=== PATIENT | female | born 1990 | race American Indian/Alaskan Native ===

== ENCOUNTER 2019-07-28 02:27 | Observation (INO) | payer MEDICAID, OTHER ==
--- NOTE | 2019-07-28 02:51 | Emergency Department Report ---
HPI - General Chief Complaint: Allergic Reaction Time Seen by Provider: 07/28/19 02:43 - HPI HPI: Room 3 The patient is a 28-year-old female presenting with a chief complaint of allergic reaction, unresponsive episode. Patient states she had eaten crabs earlier today even though she is "not supposed to" secondary to allergy. The patient states she knows "how much" she is supposed to eat before becoming infected. The patient states she began to itch all over and felt as though her throat was closing shut she took Benadryl and went to the bathroom. When the patient did not respond verbally to family when they called to her they went in the bathroom to find her slumped over on the commode leaning over the sink unresponsive. There is no seizure-like activity witnessed. The patient states she now has back pain from the way she is laying on the stretcher in the ED and just feels cold. Patient states she no longer feels as though her throat is swollen. ED Past Medical Hx - Past Medical History Previous Medical History?: No - Surgical History Past Surgical History?: Yes Additional Surgical History: C/S - Family History Family history: no significant - Social History Smoking Status: Current Every Day Smoker Substance Use Type: None (denies illicit drug use), Alcohol (frequently) - Medications Home Medications: Home Medications Medication Instructions Recorded Confirmed Last Taken Type Naproxen [Naprosyn] 500 mg PO BID PRN #12 tablet 04/26/18 Unknown Rx Promethazine [Phenergan TAB] 25 mg PO Q6HR PRN #12 tab 04/26/18 Unknown Rx ED Review of Systems ROS: Stated complaint: SYNCOPAL EPISODE Other details as noted in HPI Constitutional: other (feels cold) Physical Exam - Physical Exam Physical Exam: GENERAL: The patient is well-developed well-nourished female lying on stretcher not appearing to be in acute distress. [] HEENT: Normocephalic. Atraumatic. Extraocular motions are intact. Patient has moist mucous membranes. Oropharynx clear NECK: Supple. No stridor CHEST/LUNGS: Clear to auscultation. There is no respiratory distress noted. HEART/CARDIOVASCULAR: Regular. There is no tachycardia. There is no gallop rub or murmur. ABDOMEN: Abdomen is soft, nontender. Patient has normal bowel sounds. There is no abdominal distention. SKIN: There is no rash. There is no edema. There is no diaphoresis. NEURO: The patient is awake, alert, and oriented. The patient is cooperative. The patient has no focal neurologic deficits. The patient has normal speech. Cranial nerves II through XII grossly intact, no drift MUSCULOSKELETAL: There is no evidence of acute injury. ED Medical Decision Making - Lab Data Result diagrams: 07/28/19 03:05 07/28/19 04:42 Laboratory Tests 07/28/19 07/28/19 07/28/19 03:05 03:05 03:05 WBC 12.9 H RBC 5.00 Hgb 14.5 H Hct 44.7 H MCV 90 MCH 29 MCHC 32 RDW 14.6 Plt Count 439 Lymph % (Auto) 22.7 Lares % (Auto) 3.3 Eos % (Auto) 0.3 Baso % (Auto) 0.1 Lymph # 2.9 Lares # 0.4 Eos # 0.0 Baso # 0.0 Seg Neutrophils % 73.6 H Seg Neutrophils # 9.5 H VBG pH Sodium 141 Potassium 3.6 Chloride 106.2 Carbon Dioxide 13 L Anion Gap 25 BUN 9 Creatinine 0.9 Estimated GFR > 60 BUN/Creatinine Ratio 10 Glucose 123 H Calcium 8.2 L Total Creatine Kinase CK-MB (CK-2) CK-MB (CK-2) Rel Index Troponin T HCG, Qual Negative Plasma/Serum Alcohol 07/28/19 07/28/19 07/28/19 03:05 03:05 04:42 WBC RBC Hgb Hct MCV MCH MCHC RDW Plt Count Lymph % (Auto) Lares % (Auto) Eos % (Auto) Baso % (Auto) Lymph # Lares # Eos # Baso # Seg Neutrophils % Seg Neutrophils # VBG pH 7.259 L Sodium Potassium Chloride Carbon Dioxide Anion Gap BUN Creatinine Estimated GFR BUN/Creatinine Ratio Glucose Calcium Total Creatine Kinase 108 CK-MB (CK-2) < 1.0 CK-MB (CK-2) Rel Index 0.9 Troponin T < 0.010 HCG, Qual Plasma/Serum Alcohol 0.10 H Laboratory Tests 07/28/19 07/28/19 07/28/19 03:05 03:05 03:05 WBC 12.9 H RBC 5.00 Hgb 14.5 H Hct 44.7 H MCV 90 MCH 29 MCHC 32 RDW 14.6 Plt Count 439 Lymph % (Auto) 22.7 Lares % (Auto) 3.3 Eos % (Auto) 0.3 Baso % (Auto) 0.1 Lymph # 2.9 Lares # 0.4 Eos # 0.0 Baso # 0.0 Seg Neutrophils % 73.6 H Seg Neutrophils # 9.5 H VBG pH Sodium 141 Potassium 3.6 Chloride 106.2 Carbon Dioxide 13 L Anion Gap 25 BUN 9 Creatinine 0.9 Estimated GFR > 60 BUN/Creatinine Ratio 10 Glucose 123 H Lactic Acid Calcium 8.2 L Total Creatine Kinase CK-MB (CK-2) CK-MB (CK-2) Rel Index Troponin T HCG, Qual Negative Urine Opiates Screen Urine Methadone Screen Ur Barbiturates Screen Ur Phencyclidine Scrn Ur Amphetamines Screen U Benzodiazepines Scrn Urine Cocaine Screen U Marijuana (THC) Screen Drugs of Abuse Note Plasma/Serum Alcohol 07/28/19 07/28/19 07/28/19 03:05 03:05 04:42 WBC RBC Hgb Hct MCV MCH MCHC RDW Plt Count Lymph % (Auto) Lares % (Auto) Eos % (Auto) Baso % (Auto) Lymph # Lares # Eos # Baso # Seg Neutrophils % Seg Neutrophils # VBG pH Sodium 141 Potassium 4.7 D Chloride 110.1 H Carbon Dioxide 16 L Anion Gap 20 BUN 8 Creatinine 0.8 Estimated GFR > 60 BUN/Creatinine Ratio 10 Glucose 93 Lactic Acid Calcium 7.3 L Total Creatine Kinase 108 88 CK-MB (CK-2) < 1.0 CK-MB (CK-2) Rel Index 0.9 Troponin T < 0.010 HCG, Qual Urine Opiates Screen Urine Methadone Screen Ur Barbiturates Screen Ur Phencyclidine Scrn Ur Amphetamines Screen U Benzodiazepines Scrn Urine Cocaine Screen U Marijuana (THC) Screen Drugs of Abuse Note Plasma/Serum Alcohol 0.10 H 07/28/19 07/28/19 07/28/19 04:42 04:42 04:46 WBC RBC Hgb Hct MCV MCH MCHC RDW Plt Count Lymph % (Auto) Lares % (Auto) Eos % (Auto) Baso % (Auto) Lymph # Lares # Eos # Baso # Seg Neutrophils % Seg Neutrophils # VBG pH 7.259 L Sodium Potassium Chloride Carbon Dioxide Anion Gap BUN Creatinine Estimated GFR BUN/Creatinine Ratio Glucose Lactic Acid 3.90 H* Calcium Total Creatine Kinase CK-MB (CK-2) CK-MB (CK-2) Rel Index Troponin T HCG, Qual Urine Opiates Screen Presumptive negative Urine Methadone Screen Presumptive negative Ur Barbiturates Screen Presumptive negative Ur Phencyclidine Scrn Presumptive negative Ur Amphetamines Screen Presumptive negative U Benzodiazepines Scrn Presumptive negative Urine Cocaine Screen Presumptive negative U Marijuana (THC) Screen Presumptive negative Drugs of Abuse Note Disclamer Plasma/Serum Alcohol - EKG Data -: EKG Interpreted by Me EKG shows normal: sinus rhythm Rate: tachycardia (102 bpm) - EKG Data When compared to previous EKG there are: previous EKG unavailable Interpretation: other (no ischemic changes seen) - Differential Diagnosis allergic reaction, alcohol intoxication Critical care attestation.: If time is entered above; I have spent that time in minutes in the direct care of this critically ill patient, excluding procedure time. ED Disposition Clinical Impression: Acute allergic reaction, Transient hypotension, Metabolic acidosis, Alcohol intoxication Disposition: DC-09 OP ADMIT IP TO THIS HOSP Is pt being admited?: Yes Does the pt Need Aspirin: No Condition: Fair Referrals: PRIMARY CARE, [Primary Care Provider] - 3-5 Days Time of Disposition: 05:30 (hospitalist paged (Dr Chisholm))
[2019-07-28] MEDS ORDERED: FAMOTIDINE 20 MG/2 ML INJ IV ONE (02:52)
[2019-07-28] MEDS ORDERED: methylPREDNISolone Sod Succinate 125 MG/2 ML INJ IV ONE (02:52)
[2019-07-28] MEDS ORDERED: SODIUM CHLORIDE 0.9% 1000 ML 1,000 ML IV ONE ×2 (03:14)
[2019-07-28] MEDS ORDERED: SODIUM CHLORIDE 0.9% 1000 ML 2,000 ML ONE (03:16)
[2019-07-28 03:23] LABS: Basophils % (Auto) 0.1 % (0.0-1.8); Eosinophils % (Auto) 0.3 % (0.0-4.3); Hematocrit 44.7 % (30.3-42.9); Hemoglobin 14.5 gm/dl (10.1-14.3); Lymphocytes # (Auto) 2.9 K/mm3 (1.2-5.4); Lymphocytes % (Auto) 22.7 % (13.4-35.0); Mean Corpuscular HGB Conc 32 % (30-34); Mean Corpuscular Volume 90 fl (79-97); Monocytes # (Auto) 0.4 K/mm3 (0.0-0.8); Monocytes % (Auto) 3.3 % (0.0-7.3); Platelet Count 439 K/mm3 (140-440); Red Cell Distribution Width 14.6 % (13.2-15.2)
[2019-07-28 03:43] LABS: BUN/Creatinine Ratio 10; Blood Urea Nitrogen 9 mg/dL (7-17); Calcium 8.2 mg/dL (8.4-10.2); Hemolysis Index 8
[2019-07-28 04:07] LABS: Creatine Kinase MB < 1.0 ng/mL (0.0-4.0)
[2019-07-28 05:21] LABS: Amphetamine Screen,Urine PRESUMPTIVE NEGATIVE; Benzodiazepines Screen,Urine PRESUMPTIVE NEGATIVE; Cannabinoid Screen,Urine PRESUMPTIVE NEGATIVE; Cocaine Screen,Urine PRESUMPTIVE NEGATIVE; Methadone Screen,Urine PRESUMPTIVE NEGATIVE; Opiate Screen,Urine PRESUMPTIVE NEGATIVE
[2019-07-28 05:22] LABS: BUN/Creatinine Ratio 10; Blood Urea Nitrogen 8 mg/dL (7-17); Calcium 7.3 mg/dL (8.4-10.2); Hemolysis Index 6
[2019-07-28 05:30] LABS: Bacteria,Urine 1+ /HPF (Negative); Bilirubin,Urine NEG (Negative); Blood,Urine LG (Negative); Color,Urine Yellow (Yellow); Protein,Urine <15 mg/dL mg/dL (Negative); Urobilinogen,Urine < 2.0 mg/dL (<2.0)
--- NOTE | 2019-07-28 05:55 | History and Physical Report ---
History of Present Illness Date of examination: 07/28/19 Date of admission: 07/28/19 Chief complaint: "allergic reaction" History of present illness: Patient is a 28-year-old female with no past medical history who reports to ER with complaints of allergic reaction this evening. Patient states she is allergic to crabs but frequently eats crab legs and usually just takes Benadryl afterwards. After intake she reports her throat feeling scratchy, and hives, which is usual but states this time her symptoms seemed to linger a little longer and could have been exacerbated by her excessive alcohol intake this evening. She reports being awoken in the bathroom by family members after emeseis. She is groggy during exam and short with answers during assessment. Denies chest pain, dizziness n/v at this time. Past History Past Medical History: No medical history Past Surgical History: Social history: alcohol abuse Family history: hypertension Medications and Allergies Allergies Allergy/AdvReac Type Severity Reaction Status Date / Time shellfish derived Allergy Hives Verified 07/28/19 02:46 Home Medications Medication Instructions Recorded Confirmed Last Taken Type Naproxen [Naprosyn] 500 mg PO BID PRN #12 tablet 04/26/18 Unknown Rx Promethazine [Phenergan TAB] 25 mg PO Q6HR PRN #12 tab 04/26/18 Unknown Rx Review of Systems All systems: negative Ears, nose, mouth and throat: swelling in throat Neurological: lack of coordination Exam - Physical Exam Narrative exam: - Physical Exam Narrative exam: General appearance: Present: No distress noted - EENT Eyes: Present: PERRL ENT: hearing intact, clear oral mucosa - Neck Neck: Present: supple, normal ROM - Respiratory Respiratory effort: normal Respiratory: bilateral: Clear to auscultation - Cardiovascular Heart Sounds: Present: S1 & S2. Absent: rub, click - Extremities Extremities: pulses symmetrical, No edema Peripheral Pulses: within normal limits - Abdominal General gastrointestinal: Present: , non-distended, normal bowel sounds genitourinary: Present: normal - Integumentary Integumentary: Present: clear, warm, dry - Musculoskeletal Musculoskeletal: gait normal, strength equal bilaterally - Psychiatric Psychiatric: appropriate mood/affect, intact judgment & insight - Neurologic Neurologic: CNII-XII intact, moves all extremities - Constitutional Vitals: Temp Pulse Resp BP Pulse Ox 97.3 F L 102 H 20 107/57 98 07/28/19 05:42 07/28/19 05:42 07/28/19 05:42 07/28/19 05:42 07/28/19 05:42 Results - Labs CBC & Chem 7: 07/28/19 03:05 07/28/19 04:42 Labs: Laboratory Last Values WBC 12.9 K/mm3 (4.5-11.0) H 07/28/19 03:05 RBC 5.00 M/mm3 (3.65-5.03) 07/28/19 03:05 Hgb 14.5 gm/dl (10.1-14.3) H 07/28/19 03:05 Hct 44.7 % (30.3-42.9) H 07/28/19 03:05 MCV 90 fl (79-97) 07/28/19 03:05 MCH 29 pg (28-32) 07/28/19 03:05 MCHC 32 % (30-34) 07/28/19 03:05 RDW 14.6 % (13.2-15.2) 07/28/19 03:05 Plt Count 439 K/mm3 (140-440) 07/28/19 03:05 Lymph % (Auto) 22.7 % (13.4-35.0) 07/28/19 03:05 [place] % (Auto) 3.3 % (0.0-7.3) 07/28/19 03:05 Eos % (Auto) 0.3 % (0.0-4.3) 07/28/19 03:05 Baso % (Auto) 0.1 % (0.0-1.8) 07/28/19 03:05 Lymph # 2.9 K/mm3 (1.2-5.4) 07/28/19 03:05 [place] # 0.4 K/mm3 (0.0-0.8) 07/28/19 03:05 Eos # 0.0 K/mm3 (0.0-0.4) 07/28/19 03:05 Baso # 0.0 K/mm3 (0.0-0.1) 07/28/19 03:05 Seg Neutrophils % 73.6 % (40.0-70.0) H 07/28/19 03:05 Seg Neutrophils # 9.5 K/mm3 (1.8-7.7) H 07/28/19 03:05 VBG pH 7.259 (7.320-7.420) L 07/28/19 04:42 Sodium 141 mmol/L (137-145) 07/28/19 04:42 Potassium 4.7 mmol/L (3.6-5.0) D 07/28/19 04:42 Chloride 110.1 mmol/L (98-107) H 07/28/19 04:42 Carbon Dioxide 16 mmol/L (22-30) L 07/28/19 04:42 Anion Gap 20 mmol/L 07/28/19 04:42 BUN 8 mg/dL (7-17) 07/28/19 04:42 Creatinine 0.8 mg/dL (0.7-1.2) 07/28/19 04:42 Estimated GFR > 60 ml/min 07/28/19 04:42 BUN/Creatinine Ratio 10 % 07/28/19 04:42 Glucose 93 mg/dL (65-100) 07/28/19 04:42 Lactic Acid 3.90 mmol/L (0.7-2.0) H* 07/28/19 04:42 Calcium 7.3 mg/dL (8.4-10.2) L 07/28/19 04:42 Total Creatine Kinase 88 units/L (30-135) 07/28/19 04:42 CK-MB (CK-2) < 1.0 ng/mL (0.0-4.0) 07/28/19 03:05 CK-MB (CK-2) Rel Index 0.9 (0-4) 07/28/19 03:05 Troponin T < 0.010 ng/mL (0.00-0.029) 07/28/19 03:05 HCG, Qual Negative (Negative) 07/28/19 03:05 Urine Color Yellow (Yellow) 07/28/19 04:46 Urine Turbidity Slightly-cloudy (Clear) 07/28/19 04:46 Urine pH 6.0 (5.0-7.0) 07/28/19 04:46 Ur Specific Oden 1.009 (1.003-1.030) 07/28/19 04:46 Urine Protein <15 mg/dl mg/dL (Negative) 07/28/19 04:46 Urine Glucose (UA) Neg mg/dL (Negative) 07/28/19 04:46 Urine Ketones Tr mg/dL (Negative) 07/28/19 04:46 Urine Blood Lg (Negative) 07/28/19 04:46 Urine Nitrite Neg (Negative) 07/28/19 04:46 Urine Bilirubin Neg (Negative) 07/28/19 04:46 Urine Urobilinogen < 2.0 mg/dL (<2.0) 07/28/19 04:46 Ur Leukocyte Esterase Neg (Negative) 07/28/19 04:46 Urine WBC (Auto) 3.0 /HPF (0.0-6.0) 07/28/19 04:46 Urine RBC (Auto) 6.0 /HPF (0.0-6.0) 07/28/19 04:46 U Epithel Cells (Auto) 7.0 /HPF (0-13.0) 07/28/19 04:46 Urine Bacteria (Auto) 1+ /HPF (Negative) 07/28/19 04:46 Urine Opiates Screen Presumptive negative 07/28/19 04:46 Urine Methadone Screen Presumptive negative 07/28/19 04:46 Ur Barbiturates Screen Presumptive negative 07/28/19 04:46 Ur Phencyclidine Scrn Presumptive negative 07/28/19 04:46 Ur Amphetamines Screen Presumptive negative 07/28/19 04:46 U Benzodiazepines Scrn Presumptive negative 07/28/19 04:46 Urine Cocaine Screen Presumptive negative 07/28/19 04:46 U Marijuana (THC) Screen Presumptive negative 07/28/19 04:46 Drugs of Abuse Note Disclamer 07/28/19 04:46 Plasma/Serum Alcohol 0.10 % (0-0.07) H 07/28/19 03:05 Assessment and Plan Assessment and plan: Anaphylactic reaction -continue Solu-Medrol and pepcid -Continue to monitor -Antihistamine as needed EtOH abuse -Supportive care, IV fluid replacement - counselled for cessation Acidosis -supportive care, -Likely secondary to above -repeat labs in -IV therapy as clinically indicated Hypotension -since resolved -Continue to monitor BP DVT prophylaxis -SCDs bilateral extremities Advance Directives: No VTE prophylaxis?: Chemical Plan of care discussed with patient/family: Yes
[2019-07-28] MEDS ORDERED: ONDANSETRON 4 MG/2 ML INJ IV PRN (05:57)
[2019-07-28] MEDS ORDERED: ACETAMINOPHEN 325 MG TAB PO PRN (05:57)
[2019-07-28] MEDS ORDERED: SODIUM CHLORIDE 0.9% 1000 ML 1,000 ML IV SCH ×2 (06:15→09:00)
[2019-07-28] MEDS ORDERED: diphenhydrAMINE 50 MG/ML VIAL IV SCH (07:00)
[2019-07-28 07:20] VITALS: BP 107/54
[2019-07-28] MEDS ORDERED: HEPARIN 5,000 UNIT/1 ML VIAL SUB-Q SCH (10:00)
[2019-07-28] MEDS ORDERED: FAMOTIDINE 20 MG/2 ML INJ IV SCH (10:00)
--- NOTE | 2019-07-28 10:45 | Discharge Summary ---
Providers - Providers Date of Admission: 07/28/19 06:58 Attending physician: AMOR MOSES MD Primary care physician: [facility]ULTANT Hospitalization Reason for admission: Allergies Condition: Stable Hospital course: Patient is a 28-year-old female with no past medical history who reports to ER with complaints of allergic reaction this evening. Patient states she is allergic to crabs but frequently eats crab legs and usually just takes Benadryl afterwards. After intake she reports her throat feeling scratchy, and hives, which is usual but states this time her symptoms seemed to linger a little longer and could have been exacerbated by her excessive alcohol intake this evening. She reports being awoken in the bathroom by family members after emeseis. She is groggy during exam and short with answers during assessment. Denies chest pain, dizziness n/v at this time. * No further swelling or oral or pulmonary compromise was appreciated she is stable at this point for discharge with extensive counseling to avoid inciting factors. I also did prescribe some EpiPen for the patient. Anaphylactic reaction -Patient was treated with Solu-Medrol and Pepcid with good improvement was discharged on the same. EtOH abuse -Patient was treated with fluids extensive counseling was provided over 50 minutes on cessation. Acidosis-metabolic Hypotension -since resolved -Continue to monitor BP Syncope f secondary to anaphylactic reaction to crabs Disposition: DC-01 TO HOME OR SELFCARE Time spent for discharge: 35 mins Core Measure Documentation - Palliative Care Palliative Care/ Comfort Measures: Not Applicable - Core Measures Any of the following diagnoses?: none Exam - Physical Exam Narrative exam: VITAL SIGNS: Reviewed. GENERAL: The patient appears normally developed, Vital signs as documented. HEAD: No signs of head trauma. EYES: Pupils are equal. Extraocular motions intact. EARS: Hearing grossly intact. MOUTH: Oropharynx is normal. NECK: No adenopathy, no JVD. CHEST: Chest with clear breath sounds bilaterally. No wheezes, rales, or rhonchi. CARDIAC: Regular rate and rhythm. S1 and S2, without murmurs, gallops, or rubs. VASCULAR: No Edema. Peripheral pulses normal and equal in all extremities. ABDOMEN: Soft, non tender and non distended. No rebound or guarding, and no masses palpated. Bowel Sounds normal. MUSCULOSKELETAL: Good range of motion of all major joints. Extremities without clubbing, cyanosis or edema. NEUROLOGIC EXAM: Alert and oriented x 3 No focal sensory or strength deficits. Speech normal. Follows commands. PSYCHIATRIC: Mood normal. SKIN: detial exam as documented in skin assessment - Constitutional Vitals: Temp Pulse Resp BP Pulse Ox 98.9 F 97 H 12 107/54 99 07/28/19 06:19 07/28/19 07:19 07/28/19 07:19 07/28/19 07:07/28/19 08:56 Plan Activity: advance as tolerated, fall precautions Diet: low fat Special Instructions: record daily BP diary Follow up with: PRIMARY CARE,MD [Primary Care Provider] - 3-[address] [facility] [Outside] - 7 Days Prescriptions: EPINEPHrine [Epipen 2-Carmine] 0.3 mg IJ ONCE PRN #1 auto.injct PRN Reason: Anaphylaxis methylPREDNISolone [Medrol 4MG DOSEPAK (21 tabs)] 4 mg PO . DIR #1 tab.ds.pk Famotidine [Pepcid] 20 mg PO BID #30 tablet
[2019-07-28] MEDS ORDERED: SODIUM BICARB 8.4% 50 MEQ/50 ML SYRINGE IV ONE (11:00)
== END 2019-07-28 13:30 | disposition home or self-care (01) ==
LOC: SUATTDRO 02:27 → ED 02:27 → INTOOBSV 06:58 → IMCU 06:58
PROVIDERS: ADMIT Internal Medicine Geriatric Medicine; ATTEND Internal Medicine
DX: T78.09XA Anaphylactic reaction due to other food products, initial encounter (principal); I95.9 Hypotension, unspecified; E87.2 Acidosis; F10.129 Alcohol abuse with intoxication, unspecified; F17.200 Nicotine dependence, unspecified, uncomplicated; Z98.891 History of uterine scar from previous surgery
CPT/HCPCS: 36415; 80048; 80307; 81001; 82140; 82550; 82553; 82805; 84484; 84703; 85025; 93005; 93010; 96361; 96372; 96374; 96375; 96376; 99284; 99406; G0378; J1644; J2930; J7030; 80320; G0480